=== PATIENT | female | born 1930 | race Caucasian/White ===

== ENCOUNTER 2018-12-16 12:47 | Inpatient (IN) | payer MEDICARE, MEDICAID ==
--- NOTE | 2018-12-16 13:19 | ED Physician Chart ---
ED Chief Complaint/HPI - Patient Information Date Seen:: 12/16/18 Time Seen:: 13:19 Chief Complaint:: Increased agitation History of Present Illness:: 88 yo female was brought from SNF to ER for evaluation of increased agitation, hallucinations and screaming at staff. Allergies:: Allergies Allergy/AdvReac Type Severity Reaction Status Date / Time No Known Allergies Allergy Verified 12/16/18 12:55 Vitals:: Vital Signs - 8 hr 12/16/18 12:50 Temp 98.1 F HR 61 RR 16 BP 140/72 O2 Sat % 96 ED Review of Systems - Review of Systems General/Constitutional: No fever, No chills Skin: No rash Head: No headache Eyes: No pain ENT: No nasal drainage Neck: No neck pain Cardio Vascular: No chest pain Pulmonary: No SOB GI: No nausea, No vomiting Musculoskeletal: No bone or joint pain Psychiatric: Prior psych history Neurological: No focal symptoms ED Past Medical History - Past Medical History Past Medical History: Dyslipidemia (Hyperlipidemia), Thyroid disorder ( Hypothyroidism), Other (PARKINSONS, EMPHYSEMA) Social History: Non Smoker, No Alcohol, No Drug Use Psychiatricy History: Other (Psychosis, insomnia, anxiety) Family Medical History - Family Member Mother History Unknown: Yes ED Physical Exam - Physical Examination General/Constitutional: Awake, Alert Head: Atraumatic Eyes: PERRL, EOMI Skin: No skin lesions ENMT: Nasal exam nl Neck: No nuchal rigidity Respiratory: No Wheeze/Rhonchi/Rales Cardio Vascular: RRR, No murmur, gallop, rubs, NL S1 S2 GI: No tenderness/rebounding/guarding Extremities: normal strength in all extremities Neuro/Psych: No focal deficits ED Labs/Radiology/EKG Results - Lab Results Results: Laboratory Last Values WBC 7.9 Th/cmm (4.8-10.8) 12/16/18 13:35 RBC 4.36 Mil/cmm (3.80-5.20) 12/16/18 13:35 Hgb 13.0 gm/dL (12-16) 12/16/18 13:35 Hct 40.4 % (41.0-60) L 12/16/18 13:35 MCV 92.7 fl (81-100) 12/16/18 13:35 MCH 29.9 pg (27.0-31.0) 12/16/18 13:35 MCHC Differential 32.3 pg (28.0-36.0) 12/16/18 13:35 RDW 15.0 % (11.5-20.0) 12/16/18 13:35 Plt Count 282 Th/cmm (150-400) 12/16/18 13:35 MPV 7.5 fl 12/16/18 13:35 Add Manual Diff YES 12/16/18 13:35 Neutrophils % 41.8 % (40.0-80.0) 12/16/18 13:35 Band Neutrophils % 0 % (0-10) 12/16/18 13:35 Lymphocytes % 46.8 % (20.0-50.0) 12/16/18 13:35 Monocytes % 7.8 % (2.0-10.0) 12/16/18 13:35 Eosinophils % 3.3 % (0.0-5.0) 12/16/18 13:35 Basophils % 0.3 % (0.0-2.0) 12/16/18 13:35 Neutrophils (Manual) 43 % (40-80) 12/16/18 13:35 Lymphocytes 47 % (20-50) 12/16/18 13:35 Monocytes 7 % (2-10) 12/16/18 13:35 Eosinophils 3 % (0-5) 12/16/18 13:35 Basophils 0 % (0-3) 12/16/18 13:35 PT 9.9 SECONDS (9.5-11.5) 12/16/18 13:35 INR 0.95 (0.5-1.4) 12/16/18 13:35 PTT (Actin FS) 28.3 SECONDS (26.0-38.0) 12/16/18 13:35 Sodium 136 mEq/L (136-145) 12/16/18 13:35 Potassium 4.4 mEq/L (3.5-5.1) 12/16/18 13:35 Chloride 102 mEq/L (98-107) 12/16/18 13:35 Carbon Dioxide 25.6 mEq/L (21.0-31.0) 12/16/18 13:35 Anion Gap 12.8 (7.0-16.0) 12/16/18 13:35 BUN 19 mg/dL (7-25) 12/16/18 13:35 Creatinine 1.1 mg/dL (0.6-1.2) 12/16/18 13:35 Est GFR ( Amer) TNP 12/16/18 13:35 Est GFR (Non-Af Amer) TNP 12/16/18 13:35 BUN/Creatinine Ratio 17.3 12/16/18 13:35 Glucose 105 mg/dL (70-105) 12/16/18 13:35 Calcium 9.4 mg/dL (8.6-10.3) 12/16/18 13:35 Total Bilirubin 0.3 mg/dL (0.3-1.0) 12/16/18 13:35 AST 15 U/L (13-39) 12/16/18 13:35 ALT 6 U/L (7-52) L 12/16/18 13:35 Alkaline Phosphatase 92 U/L (34-104) 12/16/18 13:35 Troponin I 0.01 ng/mL (0.01-0.05) 12/16/18 13:35 B-Natriuretic Peptide 69.7 pg/mL (5.0-100.0) 12/16/18 13:35 Total Protein 6.5 gm/dL (6.0-8.3) 12/16/18 13:35 Albumin 3.6 gm/dL (3.7-5.3) L 12/16/18 13:35 Globulin 2.9 gm/dL 12/16/18 13:35 Albumin/Globulin Ratio 1.2 (1.0-1.8) 12/16/18 13:35 Triglycerides 117 mg/dL (<150) 12/16/18 13:35 Cholesterol 202 mg/dL (<200) H 12/16/18 13:35 LDL Cholesterol Direct 144 mg/dL (75-193) 12/16/18 13:35 HDL Cholesterol 52 mg/dL (23-92) 12/16/18 13:35 TSH 50.34 uIU/ml (0.34-5.60) H 12/16/18 13:35 - Radiology Results Results: CXR: no acute lung disease - EKG Interpretations EKG Time:: 13:28 Rate & Rhythm: 60 bpm, SR [place]: normal Intervals: borderline T wave changes Comments:: Borderline EKG ED Assessment - Assessment General Assessment: Hyperthyroidism Hyperlipidemia Psychosis Assessment/Comments:: CBC, CMP, PT/PTT, Trop, BNP, TSH, UA CXR, EKG ED Septic Shock - . Is Septic Shock (SBP<90, OR Lactate>4 mmol\L) present?: No - <6hrs of presentation: Vital Signs: Vital Signs - 8 hr 12/16/18 12:50 Temp 98.1 F HR 61 RR 16 BP 140/72 O2 Sat % 96 ED Reassessment (Disposition) - Reassessment Reassessment Condition:: Unchanged - Patient Disposition Discharge/Transfer:: Dahiana lopez/in this hosp Admitting Medical Physician:: Ronen Damon Admitting Psych Physician:: Claudia Nagy
--- NOTE | 2018-12-16 13:37 | Diagnostic Imaging Report ---
Portable chest x-ray HISTORY: Shortness of breath The patient is rotated. The heart appears enlarged. Atherosclerotic calcification seen in the aorta. No acute focal pulmonary processes. IMPRESSION: 1. No acute focal pulmonary processes 2. Cardiomegaly with atherosclerotic vascular changes
[2018-12-16 13:48] LABS: HEMATOCRIT 40.4 % (41.0-60); MEAN CELL VOLUME 92.7 fl (81-100); MEAN CORPUSCULAR HEMOGLOBIN 29.9 pg (27.0-31.0); MEAN CORPUSCULAR HGB CONC 32.3 pg (28.0-36.0); MEAN PLATELET VOLUME 7.5 fl; PLATELET COUNT 282 Th/cmm (150-400); RED BLOOD COUNT 4.36 Mil/cmm (3.80-5.20); WHITE BLOOD COUNT 7.9 Th/cmm (4.8-10.8)
[2018-12-16 13:52] LABS: % BASOPHILS 0.3 % (0.0-2.0); % EOSINOPHILS 3.3 % (0.0-5.0); % LYMPHOCYTES 46.8 % (20.0-50.0); % MONOCYTES 7.8 % (2.0-10.0); % NEUTROPHILS 41.8 % (40.0-80.0); EOSINOPHILE ABSOLUTE 0.3 Th/cmm (0.1-0.4); LYMPHOCYTE ABSOLUTE 3.8 Th/cmm (1.5-3.0); MONOCYTE ABSOLUTE 0.6 Th/cmm (0.3-1.0); NEUTROPHILE ABSOLUTE 3.3 Th/cmm (1.8-8.0)
[2018-12-16 14:01] LABS: ALB/GLOB RATIO 1.2 (1.0-1.8); ALBUMIN 3.6 gm/dL (3.7-5.3); ALKALINE PHOSPHATASE 92 U/L (34-104); ANION GAP 12.8 (7.0-16.0); BILIRUBIN,TOTAL 0.3 mg/dL (0.3-1.0); BUN - UREA NITROGEN 19 mg/dL (7-25); CALCIUM SERUM 9.4 mg/dL (8.6-10.3); CARBON DIOXIDE 25.6 mEq/L (21.0-31.0); CHLORIDE 102 mEq/L (98-107); CREATININE - SERUM 1.1 mg/dL (0.6-1.2); GLUCOSE 105 mg/dL (70-105); POTASSIUM SERUM 4.4 mEq/L (3.5-5.1); SGOT 15 U/L (13-39); SGPT/ALT 6 U/L (7-52); SODIUM SERUM 136 mEq/L (136-145); TOTAL PROTEIN,SERUM 6.5 gm/dL (6.0-8.3)
[2018-12-16 14:03] LABS: INR 0.95 (0.5-1.4); PROTHROMBIN TIME (TEST) 9.9 SECONDS (9.5-11.5)
[2018-12-16 15:22] LABS: BAND NEUTROPHILE 0 % (0-10); BASOPHIL 0 % (0-3); EOSINOPHIL 3 % (0-5); LYMPHOCYTE 47 % (20-50); MONOCYTE 7 % (2-10); NEUTROPHILS 43 % (40-80)
[2018-12-16 18:27] VITALS: BP 120/63
[2018-12-16] MEDS ORDERED: Magnesium Hydroxide (MOM) 30 mL UDC PO PRN (21:23)
[2018-12-16] MEDS ORDERED: Maalox 30 mL Cup PO PRN (21:23)
[2018-12-16] MEDS ORDERED: Acetaminophen 500 MG TAB PO PRN (21:29)
[2018-12-16 22:19] LABS: CHOLESTEROL 202 mg/dL (<200); HDL -HIGH DENSITY LIPOPROTEIN 52 mg/dL (23-92); TRIGLYCERIDES 117 mg/dL (<150)
[2018-12-17] MEDS: Levothyroxine 0.1 Mg Tab PO SCH (06:47)
--- NOTE | 2018-12-17 08:49 | Psychiatric Evaluation ---
DATE OF SERVICE: 12/16/2018 HISTORY OF PRESENT ILLNESS: Information obtained by directly interviewing the patient as well as reviewing the admission papers and they are reliable. Staff was spoken to. The patient is interviewed. The patient is admitted here on a voluntary basis in view of acute agitation. I have been trying to talk to the patient, but the patient has been screaming, yelling, and constantly saying that she needs to be helped right away and the patient is not paying any attention to any of the requested I am making. The patient is reported to have been a resident of the half-way facility and is reported to have been getting easily agitated and it is becoming difficult for them to contain the patient at a lower level of care and hence the patient has been transferred over here. Prior to the hospitalization, the patient has been diagnosed to have dementia as well as Parkinson's disease and lately it has been becoming difficult with the patient being insomnia and also has been having difficult time to cope with the stress. Staff was spoken to. The patient is interviewed. During the evaluation, I am not getting much of information and hence I have given the patient 1 mg of Ativan to start and the plan is to give the patient low dose of Seroquel tonight and follow the patient with the supportive therapy. MENTAL STATUS EXAMINATION: Significant for people. The patient is being 88-year-old, looking her stated age, superficially cooperative, constantly crying with no relief of her symptoms. The patient has been having difficult time with the stress. No side effects to the medications are noted at this time. The patient is very paranoid. The patient has short-term as well as long-term memory deficits. Insight and judgment are also noted to be very much impaired. Impulse control seems to be poor. Coping skills are also noted to be poor. DIAGNOSTIC IMPRESSION: AXIS I: Psychotic disorder, not otherwise specified. AXIS IB: Dementia and behavioral change, secondary trait. PLAN: To start the patient with the 12.5 mg of the Seroquel for tonight and follow the patient up. JOB# [id number]
[2018-12-17] MEDS ORDERED: Multivitamin Tab PO SCH (09:00)
[2018-12-17] MEDS ORDERED: Non-Formulary Item 1 EA (Pimavanserin Tartrate [Nuplazid] 34 MG) PO SCH (09:00)
[2018-12-17] MEDS: Multivitamin w/ Minerals Tab PO SCH (09:16)
[2018-12-17] MEDS: Calcium Carb/Vit D 500 mg/200 U Tab PO SCH ×2 (09:16→17:13)
--- NOTE | 2018-12-17 16:05 | Progress Notes ---
DATE: 12/17/2018 SUBJECTIVE: Staff was spoken to. The patient is interviewed. Mood is noted to be irritable. Affect is constricted. Coping skills are noted to be still poor. Insight and judgment are noted to be still impaired. No side effects to the medications are noted. The patient has been calming down after the low dose of the Seroquel last night. She is screaming and yelling yesterday, but today she has been able to relax a little bit. No side effects to the medications are noted at this time. ASSESSMENT: The patient is still psychotic, impulsive and demented. PLAN: To continue the patient with supportive therapy, encouraged the patient to verbalize the concerns rather than to act out. [facility]# [id number]
[2018-12-18] MEDS: Levothyroxine 0.1 Mg Tab PO SCH (06:58)
[2018-12-18] MEDS: Multivitamin w/ Minerals Tab PO SCH (08:59)
[2018-12-18] MEDS: Calcium Carb/Vit D 500 mg/200 U Tab PO SCH ×2 (09:00→17:00)
--- NOTE | 2018-12-18 11:31 | Consultation ---
DATE OF CONSULTATION: 12/17/2018 REFERRING PHYSICIAN: Claudia Nagy MD TYPE OF CONSULTATION: Psychology. HISTORY OF PRESENT ILLNESS: The patient is an 88-year-old female. The patient is a resident of [facility]. The following is by review of the medical record and by patient's self-report. The patient is being admitted here due to acute agitation. According to the staff, the patient has had yelling episodes and demanding attention from the staff. The staff at the patient's facility reports that the patient had become difficult for them to contain and had become easily agitated. During the clinical interview, the patient denied any suicidal ideation, plan or intention. However, the patient is not providing much information and continued to demand that she needed to be helped immediately. The patient presents as confused and disoriented. PAST MEDICAL HISTORY: Please see ER physician documentation by Dr. Rm. PAST PSYCHIATRIC HISTORY: The patient has been diagnosed with dementia as well as Parkinson's disease. The records are unclear and details are unknown regarding psychiatry or psychology service at the patient's placement or previous hospitalizations. SUBSTANCE ABUSE HISTORY: The patient did not answer these questions. PSYCHOSOCIAL HISTORY: The patient did not answer questions about occupational or educational history. The patient states that she is a Zoroastrianism. The patient did not answer questions about history of physical or sexual abuse or current legal problems. The patient stated that she has family members involved in her care, but was not specific. The patient expects to return to her placement. MENTAL STATUS EXAMINATION: The patient appears to be her stated age. The patient's attitude is superficially cooperative. Eye contact is poor. Speech is pressured. Mood is labile. Affect is labile and tearful. The patient denied any suicidal ideation, plan or intention. The patient denies any hallucinations or delusions; however, there is evidence of paranoid ideation without command type of delusion. The patient's behavior has been difficult to de-escalate on the unit. Impulse control is poor. Concentration is poor. Sensorium is alert and oriented to self only. The patient did not participate in the memory assessment and the patient did not participate in the interpretation of proverbs. Insight is poor. Judgment is impaired. DIAGNOSTIC IMPRESSION: AXIS I: 1. Psychotic disorder, not otherwise specified. 2. Dementia with behavioral disturbance. AXIS II: Deferred. AXIS III: Per Dr. Rm. PLAN: The patient has been seen by Dr. Nagy for psychiatric evaluation and for the management of the patient's psychotropic medications. According to record review, the patient was started on 12.5 mg of Seroquel at bedtime. We will provide reality orientation, differentiation and integration. We will provide supportive psychotherapy to include de-escalation. We will provide stress management to increase the patient's frustration tolerance. We will provide coping strategies for phase of life issues and adjustment to the patient's medical condition. We will encourage the patient to be able to demonstrate emotional and self-regulation prior to her discharge. We will provide motivational enhancement for the patient to become compliant and stay compliant with all aspects of her care and treatment. Thank you, Dr. Nagy, for this consult and the opportunity to participate in this patient's care. JOB# [id number] MTDD
--- NOTE | 2018-12-18 22:52 | Progress Notes ---
DATE: 12/18/2018 PSYCHIATRIC PROGRESS NOTE SUBJECTIVE: Staff was spoken to. The patient is interviewed. Mood is noted to be less irritable. Affect is constricted. The patient has been isolative and withdrawn. The patient is sleeping most of the time and hence it is decided to hold off on the Ambien at nighttime and continue the Seroquel and follow the patient up. The patient has still major behavior problems, but the psychosis seems to be resolving at this time. No side effects to the medication is noted. ASSESSMENT: The patient is paranoid. PLAN: To continue the patient with the supportive therapy and encouraged the patient to verbalize the concerns. Since the patient has been sleeping too much, it is decided to discontinue the zolpidem and then use the trazodone as a p.r.n. and discontinue also the sertraline. The patient is going to be closely monitored for any drowsiness. Blood work done at the time of the evaluation is indicating the TSH is noted to be 50.34 and the patient is already on levothyroxine. The patient is going to be scheduled to have the TSH done again. JOB# [id number]
[2018-12-19] MEDS: Levothyroxine 0.1 Mg Tab PO SCH (06:40)
[2018-12-19] MEDS: Multivitamin w/ Minerals Tab PO SCH (09:04)
[2018-12-19] MEDS: Calcium Carb/Vit D 500 mg/200 U Tab PO SCH ×2 (09:04→16:21)
--- NOTE | 2018-12-20 00:43 | Progress Notes ---
DATE: 12/19/2018 PSYCHIATRIC PROGRESS NOTE SUBJECTIVE: Staff was spoken to. The patient is interviewed. Mood is noted to be irritable. Affect is constricted. Coping skills are noted to still poor. The patient has been having difficult time to cope with the stress. The patient is stating that she needs to be there with her . The patient is demented. Whenever she does not get her way, she has been screaming and yelling. ASSESSMENT: The patient is still psychotic. PLAN: To continue the patient with supportive therapy and follow up. JOB# [id number]
--- NOTE | 2018-12-20 04:21 | Progress Notes ---
DATE: 12/19/2018 SUBJECTIVE: The patient is seen and interviewed. The patient appears to be withdrawn. Staff reports the patient sleeps most of the time and is not participating in milieu therapy or getting out of bed. The patient continues to seem confused and there is evidence of paranoid ideation. OBJECTIVE: Mood dysphoric. Affect constricted. Thought process shows to be confused. The patient denied any auditory or visual hallucinations or delusions, however there is indication of paranoid ideation. The patient's behavior has been isolative and withdrawn according to staff. The patient appears to be somnolent but is arousable to verbal stimuli. ASSESSMENT AND PLAN: The patient was provided supportive psychotherapy, which included coping strategies for phase of life issues. The attending psychiatrist has discontinued the zolpidem as well as the sertraline. We provided reality testing and reality orientation. The patient is continued on Seroquel at bedtime according to the attending psychiatrist. The patient was also provided with stress management to increase the patient's frustration tolerance. The patient appears to be fatigued and somnolent. We will continue to provide supportive therapy and motivational enhancement to assist the patient in complying with care and treatment throughout the patient's hospital stay. JOB# [id number] REID
[2018-12-20] MEDS: Levothyroxine 0.1 Mg Tab PO SCH (06:31)
[2018-12-20] MEDS: Multivitamin w/ Minerals Tab PO SCH (09:11)
[2018-12-20] MEDS: Calcium Carb/Vit D 500 mg/200 U Tab PO SCH ×2 (09:11→16:48)
--- NOTE | 2018-12-20 18:04 | History & Physical ---
ADMIT DATE: 12/18/2018 REASON FOR ADMISSION: Psychiatric disorder. HISTORY OF PRESENT ILLNESS: This is an 88-year-old female with an underlying history of dementia, who was admitted for evaluation of behavioral disturbances and worsening dementia. The patient lives at a shelter facility where the facility staff noticed that the patient has been yelling, agitated, and noticed to have worsening dementia. PAST MEDICAL HISTORY: Hypothyroidism, neuropathy, dementia, and osteoporosis. PAST SURGICAL HISTORY: No significant past surgical history. FAMILY HISTORY: Noncontributory. SOCIAL HISTORY: correction resident, at [facility]. MEDICATIONS: Medication list is reviewed. ALLERGIES: No known allergies. REVIEW OF SYSTEMS: No fever, no chills, no nausea, no vomiting, no abdominal pain, no headache, no chest pain or trouble breathing, no dizziness or palpitations. PHYSICAL EXAMINATION: VITAL SIGNS: Temperature 97.1, pulse 77, respirations 18, blood pressure 124/76, 96% on room air. HEENT: Unremarkable. HEART: S1 and S2 normal. LUNGS: Clear. ABDOMEN: Soft. NEUROLOGIC: No focal deficits. EXTREMITIES: No edema. AVAILABLE LABORATORY DATA: None. ASSESSMENT: 1. Dementia and behavioral disturbances. 2. Hypothyroidism. 3. Osteoporosis. 4. Neuropathy. PLAN: The patient will be continued on her current psychotropic medications, psych is managing. Continue Synthroid and continue Aricept, Namenda and Neurontin. Monitor behavior. Fall precautions and aspiration precautions will be given. Symptomatic treatment for nausea, vomiting, and pain. The patient's condition and plan will be discussed with the nursing staff. [facility]# [id number]
--- NOTE | 2018-12-21 01:45 | Progress Notes ---
DATE: 12/20/2018 SUBJECTIVE: Staff was spoken to. The patient is interviewed. Mood is noted to be irritable. Affect is constricted. The patient is paranoid. The patient is going on a tangent. The patient is sleeping all the daytime and he has been up all night, screaming and yelling. The patient's coping skills are noted to be extremely poor. Sleep and appetite also noted to be very poor. The patient has been having difficult time to cope with stress. No side effects to the medications are noted. ASSESSMENT: The patient is still psychotic and impulsive. PLAN: To continue the patient with the current medications and followup. JOB# [id number]
[2018-12-21] MEDS: Levothyroxine 0.1 Mg Tab PO SCH (06:52)
[2018-12-21] MEDS: Calcium Carb/Vit D 500 mg/200 U Tab PO SCH ×2 (09:39→16:46)
[2018-12-21] MEDS: Multivitamin w/ Minerals Tab PO SCH (09:39)
--- NOTE | 2018-12-22 00:03 | Progress Notes ---
DATE: 12/21/2018 SUBJECTIVE: The patient has been seen and has been interviewed. The patient presents as guarded and suspicious. Staff reports the patient is sleeping most of the day and continues to have intermittent yelling episodes. The patient seems to be still impulsive. OBJECTIVE: Mood is irritable. Affect is constricted. Thought process shows to be markedly tangential. The patient did not answer questions about auditory or visual hallucinations; however, paranoid ideation persists. The patient's behavior has been poorly redirectable on the unit. ASSESSMENT AND PLAN: Psychosis and poor impulse control persist. We provided reality testing and reality integration. We provided remotivation for the patient to become compliant and to stay compliant with all aspects of her care and treatment. We encouraged the patient to be able to demonstrate emotional and self-regulation and to be able to verbalize her concerns versus acting out. We encouraged the patient and provided positive reinforcement for the patient to follow through with staff direction and stay compliant with her medications. We provided coping strategies for chronic severe mental illness. We will follow up in 2 to 3 days to continue present treatment. JOB# [id number] REID
--- NOTE | 2018-12-22 00:54 | Progress Notes ---
DATE: 12/21/2018 SUBJECTIVE: Staff was spoken to. The patient interviewed. Mood is noted to be less irritable. The patient is sleeping all day and then she is up all night. The patient's coping skills are noted to be still poor. Insight and judgment are noted to be impaired. The patient is demented and has been demanding that we need to bring her to the hospital. The patient has no insight into her illness. The patient is not able to care for self at this time. The patient is currently on 12.5 mg of the Seroquel at night time and closely monitoring the patient. ASSESSMENT: The patient is still an impulsive. PLAN: To continue the patient with the supportive therapy. I encouraged the patient to verbalize the concerns. If the patient's blood pressure and pulse are noted to be normal, then possibly patient's Seroquel is going to be increased to 25 mg at night time and the patient is going to be followed up with the supportive therapy. [facility]# [id number]
[2018-12-22] MEDS: Levothyroxine 0.1 Mg Tab PO SCH (06:47)
[2018-12-22] MEDS: Multivitamin w/ Minerals Tab PO SCH (09:24)
[2018-12-22] MEDS: Calcium Carb/Vit D 500 mg/200 U Tab PO SCH ×2 (09:24→16:15)
--- NOTE | 2018-12-22 20:11 | Progress Notes ---
DATE: 12/22/2018 SUBJECTIVE: Staff was spoken to. The patient is interviewed. Mood is noted to be irritable. Affect is constricted. The patient's coping skills are noted to be still poor. The patient has confused and demented and is not able to care for self. The patient needs to be redirected. The patient constantly has been asking that I need to bring her to hear. The patient has been currently on Seroquel 25 mg and has been able to tolerate the medications. No side effects to the medications are noted at this time. ASSESSMENT: The patient is still psychotic. PLAN: To continue the patient with the current medications and encouraged the patient to verbalize the concerns rather than to act out. [facility]# [id number]
[2018-12-23] MEDS: Levothyroxine 0.1 Mg Tab PO SCH (06:46)
[2018-12-23] MEDS: Calcium Carb/Vit D 500 mg/200 U Tab PO SCH ×2 (09:09→16:52)
[2018-12-23] MEDS: Multivitamin w/ Minerals Tab PO SCH (09:10)
--- NOTE | 2018-12-23 11:36 | Progress Notes ---
DATE: 12/23/2018 PSYCHIATRIC PROGRESS NOTE PROGRESS ON THE UNIT: Staff was spoken to. The patient is interviewed. Mood is noted to be irritable. Affect is constricted. Continues to be paranoid. Insight and judgment are noted to be still impaired. Impulse control seems to be limited. No side effects to the medications are noted. The patient is currently on Seroquel 25 mg and has been able to tolerate the medication. The patient has been having problem with short-term as well as long-term memory. The patient has been having the problem with sundowning and needs to be redirected. ASSESSMENT: The patient is still psychotic. PLAN: To continue the patient with current medications. I encouraged the patient to verbalize the concerns. The patient is not able to clearly articulate her needs and needs to be redirected and is not ready to be discharged to a lower level of care yet. JOB# [id number]
--- NOTE | 2018-12-23 20:41 | General Progress Note ---
Subjective - Review of Systems Service Date: 12/23/18 Subjective: Patient seen and examined doing ok poorly communicative Objective - Results Result Diagrams: 12/16/18 13:35 12/16/18 13:35 Recent Labs: Laboratory Last Values WBC 7.9 Th/cmm (4.8-10.8) 12/16/18 13:35 RBC 4.36 Mil/cmm (3.80-5.20) 12/16/18 13:35 Hgb 13.0 gm/dL (12-16) 12/16/18 13:35 Hct 40.4 % (41.0-60) L 12/16/18 13:35 MCV 92.7 fl (81-100) 12/16/18 13:35 MCH 29.9 pg (27.0-31.0) 12/16/18 13:35 MCHC Differential 32.3 pg (28.0-36.0) 12/16/18 13:35 RDW 15.0 % (11.5-20.0) 12/16/18 13:35 Plt Count 282 Th/cmm (150-400) 12/16/18 13:35 MPV 7.5 fl 12/16/18 13:35 Add Manual Diff YES 12/16/18 13:35 Neutrophils % 41.8 % (40.0-80.0) 12/16/18 13:35 Band Neutrophils % 0 % (0-10) 12/16/18 13:35 Lymphocytes % 46.8 % (20.0-50.0) 12/16/18 13:35 Monocytes % 7.8 % (2.0-10.0) 12/16/18 13:35 Eosinophils % 3.3 % (0.0-5.0) 12/16/18 13:35 Basophils % 0.3 % (0.0-2.0) 12/16/18 13:35 Neutrophils (Manual) 43 % (40-80) 12/16/18 13:35 Lymphocytes 47 % (20-50) 12/16/18 13:35 Monocytes 7 % (2-10) 12/16/18 13:35 Eosinophils 3 % (0-5) 12/16/18 13:35 Basophils 0 % (0-3) 12/16/18 13:35 PT 9.9 SECONDS (9.5-11.5) 12/16/18 13:35 INR 0.95 (0.5-1.4) 12/16/18 13:35 PTT (Actin FS) 28.3 SECONDS (26.0-38.0) 12/16/18 13:35 Sodium 136 mEq/L (136-145) 12/16/18 13:35 Potassium 4.4 mEq/L (3.5-5.1) 12/16/18 13:35 Chloride 102 mEq/L (98-107) 12/16/18 13:35 Carbon Dioxide 25.6 mEq/L (21.0-31.0) 12/16/18 13:35 Anion Gap 12.8 (7.0-16.0) 12/16/18 13:35 BUN 19 mg/dL (7-25) 12/16/18 13:35 Creatinine 1.1 mg/dL (0.6-1.2) 12/16/18 13:35 Est GFR ( Amer) TNP 12/16/18 13:35 Est GFR (Non-Af Amer) TNP 12/16/18 13:35 BUN/Creatinine Ratio 17.3 12/16/18 13:35 Glucose 105 mg/dL (70-105) 12/16/18 13:35 Calcium 9.4 mg/dL (8.6-10.3) 12/16/18 13:35 Total Bilirubin 0.3 mg/dL (0.3-1.0) 12/16/18 13:35 AST 15 U/L (13-39) 12/16/18 13:35 ALT 6 U/L (7-52) L 12/16/18 13:35 Alkaline Phosphatase 92 U/L (34-104) 12/16/18 13:35 Troponin I 0.01 ng/mL (0.01-0.05) 12/16/18 13:35 B-Natriuretic Peptide 69.7 pg/mL (5.0-100.0) 12/16/18 13:35 Total Protein 6.5 gm/dL (6.0-8.3) 12/16/18 13:35 Albumin 3.6 gm/dL (3.7-5.3) L 12/16/18 13:35 Globulin 2.9 gm/dL 12/16/18 13:35 Albumin/Globulin Ratio 1.2 (1.0-1.8) 12/16/18 13:35 Triglycerides 117 mg/dL (<150) 12/16/18 13:35 Cholesterol 202 mg/dL (<200) H 12/16/18 13:35 LDL Cholesterol Direct 144 mg/dL (75-193) 12/16/18 13:35 HDL Cholesterol 52 mg/dL (23-92) 12/16/18 13:35 TSH 50.34 uIU/ml (0.34-5.60) H 12/16/18 13:35 - Physical Exam Vitals and I&O: Vital Signs Temp 98.3 F 12/23/18 19:58 Pulse 76 12/23/18 19:58 Resp 18 12/23/18 19:58 BP 102/55 12/23/18 19:58 Pulse Ox 94 12/23/18 19:58 Intake & Output 12/23/18 12/23/18 12/24/18 06:59 18:59 06:59 Intake Total 480 960 180 Output Total 1 Balance 479 960 180 Intake: Oral 480 960 180 Output: Urine/Stool Mix 1 Other: # Voids 1 3 2 # Bowel Movements 1 0 Active Medications: Current Medications Acetaminophen (Tylenol) 650 mg PO Q6HR PRN PRN Reason: Pain or Fever >101 Stop: 02/14/19 18:32 Al Hydrox/Mg Hydrox/Simethicone (Maalox) 30 ml PO Q4HR PRN PRN Reason: GI DISTRESS Stop: 02/14/19 21:22 Alendronate Sodium (Fosamax) 70 mg PO QSUN [facility] Stop: 02/16/19 07:29 Last Admin: 12/18/18 06:58 Dose: 70 mg Ascorbic Acid (Vitamin C) 500 mg PO DAILY [facility] Stop: 02/15/19 08:59 Last Admin: 12/23/18 09:11 Dose: 500 mg Aspirin (Ecotrin) 81 mg PO DAILY [facility] Stop: 02/15/19 08:59 Last Admin: 12/23/18 09:09 Dose: 81 mg Calcium/Vitamin D (Oscal W/Vitamin D) 1 tab PO BID [facility] Stop: 02/15/19 08:59 Last Admin: 12/23/18 16:52 Dose: 1 tab Donepezil HCl (Aricept) 10 mg PO HS [facility] Stop: 02/14/19 20:59 Last Admin: 12/23/18 20:24 Dose: 10 mg Gabapentin (Neurontin) 300 mg PO BID [facility] Stop: 02/15/19 08:59 Last Admin: 12/23/18 16:52 Dose: 300 mg Levothyroxine Sodium (Synthroid) 0.1 mg PO QDAC [facility] Stop: 02/15/19 07:29 Last Admin: 12/23/18 06:46 Dose: 0.1 mg Lorazepam (Ativan) 0.5 mg PO Q4HR PRN; Protocol PRN Reason: Anxiety Stop: 01/15/19 21:22 Last Admin: 12/23/18 16:52 Dose: 0.5 mg Magnesium Hydroxide (Milk Of Magnesia) 30 ml PO HS PRN PRN Reason: Constipation Memantine (Namenda) 5 mg PO BID [facility] Stop: 02/15/19 08:59 Last Admin: 12/23/18 16:53 Dose: 5 mg Quetiapine Fumarate (Seroquel) 25 mg PO HS [facility]; Protocol Stop: 02/19/19 20:59 Last Admin: 12/23/18 20:24 Dose: 25 mg Tramadol HCl (Ultram) 50 mg PO Q6H PRN PRN Reason: Pain (Severe) Stop: 02/14/19 18:32 Last Admin: 12/21/18 20:50 Dose: 50 mg Trazodone HCl (Desyrel) 25 mg PO HS PRN; Protocol PRN Reason: Insomnia Stop: 02/14/19 20:59 Last Admin: 12/21/18 20:48 Dose: 25 mg Cardiovascular: Regular rate Lungs: Clear to auscultation Assessment/Plan - Assessment Assessment: Hypothyroidism Neuropathy Dementia Psych disorder - Plan Plan: Continue current treatment Monitor oral intake Aspiration and fall precaution PT OT Nutritional Asmnt/Malnutr-PDOC - Dietary Evaluation Malnutrition Findings (Please click <Entered> for more info): Nutritional Asmnt/Malnutrition Start: 12/22/18 13: 25 Text: Status: Complete Freq: Protocol: Document 12/22/18 13:25 [email or web address] (Rec: 12/22/18 13:29 [email or web address]) Nutritional Asmnt/Malnutrition Patient General Information Nutritional Screening Low Risk Diagnosis psychosis Pertinent Medical Hx/Surgical Hx hypothyroidism, neuropathy, dementia, osteoporosis, psychosis, insomnia, anxiety Subjective Information Pt was asleep at time of visit . PO intake is 50-100% per EMR , avg 75%. Current Diet Order/ Nutrition Support regular Pertinent Medications maalox, vit c, oscal w/ vit d, synthroid, seroquel Pertinent Labs 12/16 alb 3.6, chol 202 Nutritional Hx/Data Height 1.7 m Height (Calculated Centimeters) 170.2 Current Weight (lbs) 53.977 kg Weight (Calculated Kilograms) 54.0 Weight (Calculated Grams) 16847.5 [place]ondo Body Weight 135 Body Mass Index (BMI) 18.6 Weight Status Approriate GI Symptoms GI Symptoms None Last BM 12/21 Difficult in: None Food Allergies No Skin Integrity/Comment: intact, jaden 15 Current %PO Good (75-100%) Estimated Nutritional Goals BEE in Kcals: Using Current wt Calories/Kcals/Kg 25-30 Kcals Calculated 8354-5422 Protein: Using Current wt Protein g/k Protein Calculated 54 Fluid: ml 2616-1139 (1ml/kcal) Nutritional Problem No current Nutrition Prob Problem N/A Malnutrition Alert Is there a minimum of two criteria No selected? Query Text:Check all the applicable criteria. A minimum of two criteria are recommended for diagnosis of either severe or non-severe malnutrition. Malnutrition Related to Morbid Obesity Malnutrition related to morbid obesity No Intervention/Recommendation Comments 1. Continue with regular diet as ordered. 2. Monitor PO intake, wt, labs and skin integrity 3. F/U as low risk in 7 days Expected Outcomes/Goals Expected Outcomes/Goals 1. PO intake to meet at least 75% of nutritional needs. 2. Wt stability, skin to remain intact, labs to approach WNL. Reviewed by Naomy Thakkar RD
[2018-12-24] MEDS: Levothyroxine 0.1 Mg Tab PO SCH (07:01)
[2018-12-24] MEDS: Calcium Carb/Vit D 500 mg/200 U Tab PO SCH ×2 (09:28→16:33)
[2018-12-24] MEDS: Multivitamin w/ Minerals Tab PO SCH (09:28)
--- NOTE | 2018-12-24 21:43 | Progress Notes ---
DATE: 12/23/2018 SUBJECTIVE: The patient has been seen and interviewed. The patient presents as irritable and guarded. The patient is verbalizing paranoid ideation. The patient has very limited insight into her illness. Staff reports the patient is impulsive at times, but does respond to behavioral redirection. Staff indicates possible sundowning episodes. The patient is taking her p.o. medications. OBJECTIVE: Mood irritable. Affect is constricted. Thought process shows to be confused. The patient denied any suicidal ideation, plan or intention. The patient denied any auditory or visual hallucinations. The patient's memory appears to be impaired for both short term and long-term dimensions. The patient denied any suicidal ideation, plan or intention. The patient is needing constant redirection. ASSESSMENT/PLAN: The patient continues to be psychotic as well as confused and somewhat impulsive. The patient is taking her p.o. medications. We provided supportive psychotherapy to include encouragement for the patient to verbalize her concerns. We provided reality orientation, differentiation and integration. We provided coping strategies for phase of life issues as well as adjustment to the patient's current medical condition. We provided remotivation for the patient to stay compliant with all aspects of her care and treatment. We encouraged the patient to demonstrate emotional and self-regulation prior to her discharge. We will follow up in 2-3 days to continue the present treatment. JOB# [id number] REID
[2018-12-25] MEDS: Levothyroxine 0.1 Mg Tab PO SCH ×2 (06:49→07:13)
[2018-12-25] MEDS: Calcium Carb/Vit D 500 mg/200 U Tab PO SCH ×2 (09:24→17:04)
[2018-12-25] MEDS: Multivitamin w/ Minerals Tab PO SCH (09:24)
--- NOTE | 2018-12-25 09:27 | Progress Notes ---
DATE: 12/24/2018 SUBJECTIVE: Staff was spoken to. The patient is interviewed. Mood is noted to be irritable. Affect is constricted. The patient is screaming and yelling, stating that she needs to be put back to bed. Once she is in the bed she is demanding that she should be put back to the chair in the day area. The patient is very confused at this time. The patient has no insight into her illness. The patient is currently on Seroquel and is able to tolerate the medication. PLAN: To continue the patient with the current medications and followup. JOB# [id number]
--- NOTE | 2018-12-25 16:59 | Progress Notes ---
DATE: 12/25/2018 SUBJECTIVE: Staff was spoken to. The patient is interviewed. Mood is noted to be irritable. Affect is constricted. Insight and judgment at this time are noted to be still impaired. Impulse control is noted to be limited. Coping skills are noted to be limited, but the patient has been to be redirected. No major concerns are noted, but towards the end of the day the patient has been having sundowning symptoms. Sleep is noted to be improving. Appetite is noted to be fair at this time. ASSESSMENT: The patient's psychosis is resolving. PLAN: To continue the patient with the supportive therapy and followup. JOB# [id number]
[2018-12-26] MEDS: Levothyroxine 0.1 Mg Tab PO SCH (06:49)
[2018-12-26] MEDS: Calcium Carb/Vit D 500 mg/200 U Tab PO SCH (10:02)
[2018-12-26] MEDS: Multivitamin w/ Minerals Tab PO SCH (10:02)
--- NOTE | 2018-12-26 23:22 | Progress Notes ---
DATE: 12/26/2018 PSYCHIATRIC PROGRESS NOTE SUBJECTIVE: Staff was spoken to. The patient is interviewed. Mood is noted to be anxious. Affect is appropriate. The patient is not suicidal or homicidal. Insight and judgment are noted to be improving. Impulse control seemed to be fair. Coping skills are also noted to be fair. The patient has been able to verbalize the concerns rather than to act out. The patient at this time has been able to participate in the groups and no major problems are reported. The patient and family has been spoken to. They are okay with the patient going back to the facility. ASSESSMENT: The patient is stabilizing. PLAN: To discharge the patient today for followup on outpatient basis. JOB# [id number]
== END 2018-12-26 13:30 | DRG 885 ==
LOC: ER 12:47 → GERO 14:12
PROVIDERS: ADMIT Psychiatry & Neurology Psychiatry; ATTEND Psychiatry & Neurology Psychiatry
DX: F29 Unspecified psychosis not due to a substance or known physiological condition (principal); F02.81 Dementia in other diseases classified elsewhere, unspecified severity, with behavioral disturbance; E03.9 Hypothyroidism, unspecified; M81.0 Age-related osteoporosis without current pathological fracture; G62.9 Polyneuropathy, unspecified; E78.5 Hyperlipidemia, unspecified; G20 Parkinson's disease; J43.9 Emphysema, unspecified
CPT/HCPCS: 36415-UA; 71045-TC; 80053-TC; 80061-TC; 83036-90; 83880-TC; 84443-TC; 84484-TC; 85007-TC; 85025-TC; 85610-TC; 93005; Z7610